=== PATIENT | female | born 1950 | race Caucasian/White ===

== ENCOUNTER 2022-01-06 08:08 | Outpatient (CLI) | payer OTHER | END 2022-01-06 08:19 | disposition home or self-care (01) | LOC: SONOGRAMA 08:08 | PROVIDERS: ATTEND Pathology Anatomic Pathology & Clinical Pathology | DX: E04.1 Nontoxic single thyroid nodule (principal) ==

== ENCOUNTER 2022-11-14 08:31 | Emergency (ER) | payer OTHER ==
[~2022-11-14] VITALS: Ht 157.5 cm; Wt 59.0 kg
[2022-11-14] MEDS ORDERED: LEVOTHYROXINE25 MC2 PO (08:50)
[2022-11-14] MEDS ORDERED: TOPROL XL50 M1 PO (08:50)
[2022-11-14] MEDS ORDERED: VAZALORE81 MG PO (08:50)
== END 2022-11-14 12:11 | disposition home or self-care (01) ==
LOC: ER 08:31
DX: M54.59 Other low back pain (principal); E03.9 Hypothyroidism, unspecified; I10 Essential (primary) hypertension

== ENCOUNTER 2023-08-10 10:02 | Outpatient (CLI) | payer OTHER ==
[~2023-08-10 10:02] MED LIST: LEVOTHYROXINE25 MC2 PO; TOPROL XL50 M1 PO; VAZALORE81 MG PO
== END 2023-08-10 10:05 | disposition home or self-care (01) ==
LOC: SONOGRAMA 10:02
PROVIDERS: ATTEND Pathology Anatomic Pathology & Clinical Pathology
DX: D34 Benign neoplasm of thyroid gland (principal); E04.9 Nontoxic goiter, unspecified